=== PATIENT | female | born 1950 | race Caucasian/White ===

== ENCOUNTER 2021-12-22 13:46 | Inpatient (IN) | payer OTHER ==
--- OUTSIDE RECORDS SUMMARY | 2021-12-22 13:49 | XMS REPORT | Continuity of Care Document ---
:1950 Author Organization [facility] t Address [address] [place] [place] [address] Care Team Providers Name Role Phone Wood Hagan MD Primary Care Physician Wood Hagan Attending Clinician Unavailable TAVO ORTEGA Attending Clinician Unavailable Payers Payer Name Policy Type Policy Number Effective Date Expiration Date S ource Problems Condition Condition Condition Status Onset Resolution Last Treating Co mments Source Name Details Category Date Date Treatment Clinician Date No known No known Disease Metho di active active st problems problems Hospit a l Allergies, Adverse Reactions, Alerts This patient has no known allergies or adverse reactions. Family History Family Member Diagnosis Comments Start Date Stop Date Source Natural mother Cancer [facility] Social History Social Habit Start Date Stop Date Quantity Comments Source Tobacco Comment 2020-11-07 2020-11-07 No history at all [facility] Tobacco use and 2020-11-07 2020-11-07 Smokeless tobacco [facility] exposure 00:00:00 00:00:00 non-user Hospital Alcohol intake 2020-11-07 2020-11-07 Current drinker [facility] 00:00:00 00:00:00 of alcohol Hospital (finding) Sex Assigned At [birth year] F [facility] 00:00:00 00:00:00 Hospital Smoking Status Start Date Stop Date Source Never smoked tobacco [facility] Medications Ordered Filled Start Stop Current Ordering Indication Dosage Frequency Signature Comments Components Source Medication Medication Date Date Medication? Clinician (SIG) Name Name losartan Yes 100mg QD Take 100 Meth marlee (COZAAR) 5-[address] 100 MG 00:00: mouth Hospita tablet 00 daily. l Procedures This patient has no known procedures. Plan of Care Planned Activity Planned Date Details Comments Source Future Scheduled 2021-12-20 HEPATITIS B VACCINES [facility] Test 00:48:00 (1 of 3 - 3-dose series) [code = HEPATITIS B VACCINES (1 of 3 - 3-dose series)] Future Scheduled 2021-12-20 COVID-19 VACCINE (#1) [facility] Test 00:48:00 [code = COVID-19 VACCINE (#1)] Future Scheduled 2021-12-20 Hepatitis C screening [facility] Test 00:48:00 (procedure) [code = 936171061] Future Scheduled 2021-12-20 BREAST CANCER [facility] Test 00:48:00 SCREENING [code = BREAST CANCER SCREENING] Future Scheduled 2021-12-20 COLONOSCOPY SCREENING [facility] Test 00:48:00 [code = COLONOSCOPY SCREENING] Future Scheduled 2021-12-20 SHINGLES VACCINES (1 [facility] Test 00:48:00 of 2) [code = SHINGLES VACCINES (1 of 2)] Future Scheduled 2021-12-20 65+ [facility]AL [facility] 00:48:00 VACCINE (1 - PCV) [code = 65+ PNEUMOCOCCAL VACCINE (1 - PCV)] Future Scheduled 2021-12-20 [facility]ACCINE [facility] 00:48:00 [code = INFLUENZA VACCINE] Encounters Start End Encounter Admission Attending Care Care Encounter Source Date/Time Date/Time Type Type Clinicians Facility Department ID 2021-08-23 Outpatient [place] [id number] Common 09:30:02 [facility] 2021-05-16 Outpatient [place] [facility] [id number] Common 13:05:54 Wood [facility] 2021-05-16 Outpatient [facility] [id number] Common 12:10: 61389 [facility] 2021-12-14 2021-12-14 Travel 1.2.840.1 [id number] [facility] 00:00:00 00:00:[address] 3.430.2.7 0.2.7.3.698 Ho spita .3.508615 084.8 l .8 2021-12-05 2021-12-05 Transcribe Bentley, 1.2.840.1 [id number] [facility] 00:00:00 00:00:00 Orders Wood [address] 3.430.2.7 Hospit a .3.054974 l .8 2021-12-05 2021-12-05 Travel 1.2.840.1 [id number] [facility] 00:00:00 00:00:[address] 3.430.2.7 0.2.7.3.698 Ho spita .3.646723 084.8 l .8 2020-12-13 2020-12-13 Outpatient [facility] [id number] Common 00:00:00 00:00:00 [facility] 2020-11-07 2020-11-07 Outpatient [facility] [id number] [address] [place] 00:00:00 00:00:[address] 2020-11-07 2020-11-07 Outpatient [facility] [id number] [address] [place] 00:00:00 00:00:[address] 2020-08-15 2020-08-15 Outpatient JASMYNE ORTE[facility] [id number] [place] 09:21:00 23:59:00 TAVO 2020-07-20 2020-07-20 Outpatient [facility] [id number] Common 00:00:00 00:00:00 [facility] 2020-06-14 2020-06-14 Outpatient [facility] [id number] Common 00:00:00 00:00:00 [facility] 2020-05-29 2020-05-29 Outpatient [facility] [id number] Common 00:00:00 00:00:00 [facility] 2020-04-25 2020-04-25 Outpatient [facility] [id number] Common 00:00:00 00:00:00 [facility] 2020-04-04 2020-04-04 Outpatient [facility] [id number] Common 00:00:00 00:00:00 [facility] 2020-03-29 2020-03-29 Outpatient [facility] [id number] Common 00:00:00 00:00:00 [facility] 2020-03-24 2020-03-24 Outpatient [facility] [id number] Common 00:00:00 00:00:00 [facility] Results This patient has no known results.
[2021-12-22] MEDS ORDERED: NA CHLORIDE 0.9% 500 ML ONE (14:45)
[2021-12-22 15:17] LABS: Absolute Lymphocytes (CBC) 0.5 K/uL (0.7-4.9); Hematocrit 38.1 % (36.0-45.0); Lymphocytes % 3.8 % (15.3-44.8); MCV 88.4 fL (80-100); MPV 7.8 fL (7.6-11.3); RBC Red Blood Cell Count 4.31 M/uL (3.86-4.86)
[2021-12-22 15:26] LABS: Albumin 2.6 g/dL (3.4-5.0); Bilirubin Total 0.3 mg/dL (0.2-1.0); Potassium 3.6 mmol/L (3.5-5.1); Protein, Total 6.4 g/dL (6.4-8.2)
--- NOTE | 2021-12-22 15:51 | RAD REPORT ---
EXAM DESCRIPTION: CTAbdomen Pelvis W Contrast - 12/22/2021 3:33 pm CLINICAL HISTORY: Abdominal pain, acute, nonlocalized COMPARISON: No comparisons TECHNIQUE: CT of the abdomen and pelvis was performed with contrast. All CT scans are performed using dose optimization technique as appropriate and may include automated exposure control or mA/KV adjustment according to patient size. FINDINGS: Lower chest: The hiatal hernia. Question thickened gastric wall. Liver: No acute abnormality or suspicious lesions. Biliary: No biliary ductal dilatation. Stomach: No significant focal abnormality. Duodenum: No significant focal abnormality. Pancreas: No significant abnormality. Spleen: No significant abnormality. Adrenal: No suspicious lesions. Kidney/ureter: No hydronephrosis. No renal calculi. Bilateral renal lesions which are indeterminate. Question striated left nephrogram. Retroperitoneum: No retroperitoneal adenopathy. Vascular: No aneurysm. Bowel: No significant focal abnormality. Peritoneum: No ascites or free air. Bladder: Grossly unremarkable. Reproductive: No adnexal masses. Hysterectomy Bones: No acute fracture. Ruby rods in the spine. Remote right obturator ring fracture. Remote rib fractures. Other: n/a IMPRESSION: Ill-defined areas of hypoattenuation within the kidneys bilaterally may represent pyelon ephritis. No renal abscess noted at this time. Consider follow-up renal ultrasound in 6-12 weeks to r e-assess for an underlying lesion. Question gastritis. This can be further evaluated with nonemergent endoscopy.
--- NOTE | 2021-12-22 16:25 | ER ---
Nurse's Notes [facility] Name: Berta Munroe Age: 71 yrs Sex: Female : 1950 Arrival Date: 12/22/2021 Time: 13:58 Bed 7 Private MD: Diagnosis: Hypo-osmolality and hyponatremia;Weakness Presentation: 12/22 14:14 Chief complaint: Spouse and/or significant other states: A few days ago she started iw having fever, nausea, and body aches. I took her to urgent care on Yesterday and they said she has a UTI. When I took her back today they did an abdominal xray and said that she might have a small bowel obstruction and to come here. Coronavirus screen: Client presents with at least one sign or symptom that may indicate coronavirus-19. Standard/surgical mask placed on the client. The client reports previous COVID testing was negative. Date of collection: December 21, 2021. Ebola Screen: No symptoms or risks identified at this time. Initial Sepsis Screen: Does the patient meet any 2 criteria? No. Patient's initial sepsis screen is negative. Does the patient have a suspected source of infection? No. Patient's initial sepsis screen is negative. Initial Sepsis Screen: Does the patient have a suspected source of infection? Yes: Dysuria/Frequency/Urgency/UTI. Risk Assessment: Do you want to hurt yourself or someone else? Patient reports no desire to harm self or others. Onset of symptoms is unknown. 14:14 Method Of Arrival: Ambulatory iw 14:14 Acuity: MINAL 3 iw 14:14 Care prior to arrival: Medication(s) given: Motrin, \T\ 0200. iw Triage Assessment: 14:18 General: Appears in no apparent distress. comfortable, Behavior is calm, cooperative, iw appropriate for age. Pain: Denies pain. EENT: No deficits noted. No signs and/or symptoms were reported regarding the EENT system. Neuro: No deficits noted. Cardiovascular: No deficits noted. Respiratory: No deficits noted. GI: Abdomen is flat, non-distended, Abd is soft and non tender X 4 quads. Reports anorexia, intolerance of food, nausea. : Reports inability to void, Denies burning with urination. Derm: No deficits noted. No signs and/or symptoms reported regarding the dermatologic system. Musculoskeletal: No deficits noted. No signs and/or symptoms reported regarding the musculoskeletal system. Historical: - Allergies: 14:18 No Known Allergies; iw - Home Meds: 14:18 losartan 50 mg oral tab 1 tab 2 times per day [Active]; iw - PMHx: 14:18 Hypertensive disorder; iw - PSHx: 14:18 scoliosis; hyst; iw - Immunization history:: Adult Immunizations up to date, Client reports receiving the 2nd dose of the Covid vaccine, Client reports receiving the 1st dose of the Covid vaccine. - Social history:: Smoking status: Patient denies any tobacco usage or history of. Screenin:55 Abuse screen: Denies threats or abuse. Denies injuries from another. Nutritional eh3 screening: No deficits noted. Tuberculosis screening: No symptoms or risk factors identified. Fall Risk None identified. Assessment: 14:55 General: Appears in no apparent distress. comfortable, Behavior is calm, cooperative, eh3 appropriate for age. Pain: Denies pain. Neuro: Level of Consciousness is awake, alert, obeys commands, Oriented to person, place, time, situation. Cardiovascular: Capillary refill < 3 seconds Patient's skin is warm and dry. Respiratory: Airway is patent Respiratory effort is even, unlabored. GI: Abdomen is round distended, Bowel sounds present X 4 quads. : No signs and/or symptoms were reported regarding the genitourinary system. 16:08 Reassessment: Patient is alert, oriented x 3, equal unlabored respirations, skin eh3 warm/dry/pink. 17:08 Reassessment: Patient is alert, oriented x 3, equal unlabored respirations, skin eh3 warm/dry/pink. c/o of nausea. Emesis bag provided. 18:57 Reassessment: Patient appears in no apparent distress at this time. Patient and/or ld1 family updated on plan of care and expected duration. Pain level reassessed. Patient is alert, oriented x 3, equal unlabored respirations, skin warm/dry/pink. 19:15 GI: Reports vomiting. ke1 20:14 Reassessment: Report given to Deepa herring1 Vital Signs: 14:14 BP 120 / 65; Pulse 68; Resp 16; Temp 97.8(O); Pulse Ox 100% on R/A; Weight 63.5 kg (R); iw Height 5 ft. 7 in. (170.18 cm); Pain 0/10; 15:00 BP 130 / 57; Pulse 60; Resp 16; Pulse Ox 96% on R/A; eh3 16:00 BP 147 / 96; Pulse 67; Resp 20; Pulse Ox 97% on R/A; eh3 17:00 BP 171 / 84; Pulse 72; Resp 14; Pulse Ox 96% on R/A; eh3 18:00 BP 152 / 73; Pulse 72; Resp 17; Pulse Ox 100% on R/A; ld1 14:14 Body Mass Index 21.93 (63.50 kg, 170.18 cm) iw ED Course: 13:58 Patient arrived in ED. am2 14:07 Harley Meehan MD is Attending Physician. kdr 14:18 Triage completed. iw 14:18 Arm band placed on right wrist. iw 14:30 Maddi Dao, RN is Primary Nurse. eh3 14:55 Patient has correct armband on for positive identification. Bed in low position. Call [facility] light in reach. Side rails up X2. laboratory monitor on. Door closed. Noise minimized. Lights dimmed. Warm blanket given. 14:55 No provider procedures requiring assistance completed. Missed attempt(s): 20 gauge in eh3 right antecubital area. Inserted saline lock: 20 gauge in left antecubital area, using aseptic technique. Blood collected. 15:35 CT Abd/Pelvis - IV Contrast Only In Process Unspecified. EDMS 16:12 CXR XRAY In Process Unspecified. EDMS 16:18 Straight cath inserted, using sterile technique, 18 Fr. Specimen obtained. Patient 3 tolerated. 16:20 Wood Hagan MD is Hospitalizing Provider. kdr 17:08 SARS RAPID Sent. eh3 17:11 Urine Culture Sent. eh3 Administered Medications: 14:55 Drug: NS 0.9% 500 ml Route: IV; Rate: bolus; Site: left antecubital; eh3 16:00 Follow up: IV Status: Completed infusion; IV Intake: 500ml 3 16:40 Drug: NS 0.9% 1000 ml Route: IV; Rate: 150 ml/hr; Site: left antecubital; eh3 17:36 Follow up: IV Status: Completed infusion; IV Intake: 1000ml 3 19:24 Drug: ProTONIX (pantoprazole) 40 mg Route: IVP; Site: left antecubital; ke1 19:33 Drug: Zofran (Ondansetron) 4 mg Route: IVP; Site: left antecubital; ke1 19:46 Drug: GI Cocktail without - (Maalox Suspension 30 ml, Lidocaine Liquid 2 % 15 ke1 ml) Route: PO; Medication: 14:55 VIS not applicable for this client. 3 Intake: 16:00 IV: 500ml; Total: 500ml. eh3 17:36 IV: 1000ml; Total: 1500ml. 3 Outcome: 16:24 Decision to Hospitalize by Provider. kdr 20:39 Patient left the ED. Signatures: Dispatcher [employer] EDMS Marychuy Flower RN Harley Saul MD MD kdr Williams, Irene, RN RN iw Moreno, Amanda am2 Shira Wilson RN RN ld1 Nancy Rosario tw5 Horacio Wilson RN RN ke1 Maddi Dao RN RN 3 Corrections: (The following items were deleted from the chart) 15:45 15:43 Patient has correct armband on for positive identification. Bed in low position. 3 Call light in reach. Side rails up X2. [facility] 15:45 15:43 laboratory monitor on. [place] [address] 15:45 15:43 Door closed. Noise minimized. Lights dimmed. Warm blanket given. [place] [address] 15:45 15:43 Abuse screen: Denies threats or abuse. Denies injuries from another. [place] [address] 15:45 15:43 Nutritional screening: No deficits noted. [place] [address] 15:45 15:43 Tuberculosis screening: No symptoms or risk factors identified. [place] [address] 15:45 15:43 Fall Risk None identified. [facility] 17:10 17:08 Reassessment: Patient is alert, oriented x 3, equal unlabored respirations, skin 3 warm/dry/pink. 3 18:57 18:57 BP 152 / 73; Pulse 72bpm; Resp 17bpm; Pulse Ox 100% RA; ld1 ld1 19:32 19:31 GI: Reports vomiting, ke1 ke1 20:13 20:12 Reassessment: Report given to miguel DIETRICH tw5 tw5
--- NOTE | 2021-12-22 16:25 | EDPHYS ---
Physician Documentation [facility] Name: Berta Munroe Age: 71 yrs Sex: Female : 1950 Arrival Date: 12/22/2021 Time: 13:58 Bed 7 Private MD: ED Physician Harley Meehan HPI: 12/22 16:38 This 71 yrs old Female presents to ER via Ambulatory with complaints of Fever, kdr Abdominal Distention. 16:38 Patient has been feeling poorly for the last 2 to 3 days. She has been to several [facility] urgent care during that time. She is also been tested several times for COVID and all of have been negative to date. At one time she was thought to possibly have a urinary tract infection with given Rocephin and Cipro. She has continued to feel poorly and presented back to the urgent care this morning. They did a abdominal plain film and were concerned for possible bowel obstruction. Since they did not have the facilities to evaluate that possibility, she was sent to the ED for further evaluation.. Onset: The symptoms/episode began/occurred gradually, 3 day(s) ago. Severity of symptoms: At their worst the symptoms were very mild mild in the emergency department the symptoms are unchanged. The patient has not experienced similar symptoms in the past. The patient has been recently seen by a physician: The patient has been recently seen at an urgent care, just prior to arrival, today, yesterday. Historical: - Allergies: 14:18 No Known Allergies; iw - Home Meds: 14:18 losartan 50 mg oral tab 1 tab 2 times per day [Active]; iw - PMHx: 14:18 Hypertensive disorder; iw - PSHx: 14:18 scoliosis; hyst; iw - Immunization history:: Adult Immunizations up to date, Client reports receiving the 2nd dose of the Covid vaccine, Client reports receiving the 1st dose of the Covid vaccine. - Social history:: Smoking status: Patient denies any tobacco usage or history of. ROS: 16:38 Constitutional: Negative for chills, and weight loss. kdr 16:38 Eyes: Negative for injury, pain, redness, and discharge, Neck: Negative for injury, pain, and swelling, Cardiovascular: Negative for chest pain, palpitations, and edema, Respiratory: Negative for shortness of breath, cough, wheezing, and pleuritic chest pain, Abdomen/GI: Negative for abdominal pain, nausea, vomiting, diarrhea, and constipation, Back: Negative for injury and pain, : Negative for injury, bleeding, discharge, and swelling, MS/Extremity: Negative for injury and deformity, Skin: Negative for injury, rash, and discoloration, Psych: Negative for depression, anxiety, suicide ideation, homicidal ideation, and hallucinations, Allergy/Immunology: Negative for hives, rash, and allergies, Endocrine: Negative for neck swelling, polydipsia, polyuria, polyphagia, and marked weight changes, Hematologic/Lymphatic: Negative for swollen nodes, abnormal bleeding, and unusual bruising. 16:38 Constitutional: Positive for chills, fever. 16:38 Abdomen/GI: Positive for The patient had a very poor appetite this week and has eaten very little for the last 2 to 4 days. She has also had diminished bowel movements. 16:38 Neuro: Positive for weakness. Exam: 16:38 Constitutional: This is a well developed, well nourished patient who is awake, alert, kdr and in no acute distress. Head/Face: Normocephalic, atraumatic. Eyes: Pupils equal round and reactive to light, extra-ocular motions intact. Lids and lashes normal. Conjunctiva and sclera are non-icteric and not injected. Cornea within normal limits. Periorbital areas with no swelling, redness, or edema. Neck: Trachea midline, no thyromegaly or masses palpated, and no cervical lymphadenopathy. Supple, full range of motion without nuchal rigidity, or vertebral point tenderness. No Meningismus. Chest/axilla: Normal chest wall appearance and motion. Nontender with no deformity. No lesions are appreciated. Cardiovascular: Regular rate and rhythm with a normal S1 and S2. No gallops, murmurs, or rubs. Normal PMI, no JVD. No pulse deficits. Respiratory: Lungs have equal breath sounds bilaterally, clear to auscultation and percussion. No rales, rhonchi or wheezes noted. No increased work of breathing, no retractions or nasal flaring. Abdomen/GI: Soft, non-tender, with normal bowel sounds. No distension or tympany. No guarding or rebound. No evidence of tenderness throughout. Back: No spinal tenderness. No costovertebral tenderness. Full range of motion. Skin: Warm, dry with normal turgor. Normal color with no rashes, no lesions, and no evidence of cellulitis. MS/ Extremity: Pulses equal, no cyanosis. Neurovascular intact. Full, normal range of motion. Neuro: Awake and alert, GCS 15, oriented to person, place, time, and situation. Cranial nerves II-XII grossly intact. Motor strength 5/5 in all extremities. Sensory grossly intact. Cerebellar exam normal. Normal gait. Psych: Awake, alert, with orientation to person, place and time. Behavior, mood, and affect are within normal limits. Vital Signs: 14:14 BP 120 / 65; Pulse 68; Resp 16; Temp 97.8(O); Pulse Ox 100% on R/A; Weight 63.5 kg (R); iw Height 5 ft. 7 in. (170.18 cm); Pain 0/10; 15:00 BP 130 / 57; Pulse 60; Resp 16; Pulse Ox 96% on R/A; eh3 16:00 BP 147 / 96; Pulse 67; Resp 20; Pulse Ox 97% on R/A; eh3 17:00 BP 171 / 84; Pulse 72; Resp 14; Pulse Ox 96% on R/A; eh3 18:00 BP 152 / 73; Pulse 72; Resp 17; Pulse Ox 100% on R/A; ld1 14:14 Body Mass Index 21.93 (63.50 kg, 170.18 cm) iw MDM: 16:24 Patient medically screened. kdr 16:38 Data reviewed: vital signs, nurses notes, lab test result(s), radiologic studies. kdr Counseling: I had a detailed discussion with the patient and/or guardian regarding: the historical points, exam findings, and any diagnostic results supporting the discharge/admit diagnosis, lab results, radiology results, the need for further work-up and treatment in the hospital. Physician consultation: Wood Hagan MD regarding admission, to the telemetry unit. patient's condition. Admission orders: after a detailed discussion of the patient's condition and case, the admit orders are written by me. 12/22 14:28 Order name: CBC with Diff; Complete Time: 15:36 kdr 12/22 14:28 Order name: CMP; Complete Time: 15:36 kdr 12/22 14:28 Order name: Lipase; Complete Time: 15:36 kdr 12/22 16:20 Order name: Urine Culture; Complete Time: 11:58 kdr 12/22 16:32 Order name: Basic Metabolic Panel EDMS 12/22 16:32 Order name: Basic Metabolic Panel; Complete Time: 11:58 EDMS 12/22 14:28 Order name: CT Abd/Pelvis - IV Contrast Only; Complete Time: 16:08 kdr 12/22 15:37 Order name: CXR XRAY; Complete Time: 11:58 kdr 12/22 16:32 Order name: CBC with Automated Diff EDMS 12/22 16:32 Order name: CBC with Automated Diff; Complete Time: 11:58 EDMS 12/22 16:37 Order name: SARS RAPID; Complete Time: 11:58 eb 12/22 16:52 Order name: Urine Dipstick-Ancillary; Complete Time: 11:58 EDMS 12/22 14:28 Order name: IV Saline Lock; Complete Time: 14:30 kdr 12/22 14:28 Order name: Labs collected and sent; Complete Time: 14:55 kdr 12/22 16:20 Order name: Urine Dipstick-Ancillary (obtain specimen); Complete Time: 16:54 kdr 12/22 16:32 Order name: Regular EDMS Administered Medications: 14:55 Drug: NS 0.9% 500 ml Route: IV; Rate: bolus; Site: left antecubital; 3 16:00 Follow up: IV Status: Completed infusion; IV Intake: 500ml [facility] 16:40 Drug: NS 0.9% 1000 ml Route: IV; Rate: 150 ml/hr; Site: left antecubital; eh3 17:36 Follow up: IV Status: Completed infusion; IV Intake: 1000ml [facility] 19:24 Drug: ProTONIX (pantoprazole) 40 mg Route: IVP; Site: left antecubital; ke1 19:33 Drug: Zofran (Ondansetron) 4 mg Route: IVP; Site: left antecubital; ke1 19:46 Drug: GI Cocktail without - (Maalox Suspension 30 ml, Lidocaine Liquid 2 % 15 ke1 ml) Route: PO; Disposition Summary: 12/22/21 16:24 Hospitalization Ordered Hospitalization Status: Inpatient Admission kdr Provider: Wood Hagan Location: Telemetry[facility] (Inpatient) kdr Condition: Fair kdr Problem: new kdr Symptoms: have improved kdr Bed/Room Type: Standard kdr Room Assignment: 409(12/22/21 19:37) cg Diagnosis - Hypo-osmolality and hyponatremia kdr - Weakness kdr Forms: - Medication Reconciliation Form kdr - SBAR form kdr Signatures: Dispatcher [employer] EDDale Will MD MD cha Rittger, Kevin, MD MD kdr Williams, Irene, RN RN iw Garcia, Cindy, RN RN cg Ebrottie, Kouassi, RN RN formerly [facility] Maddi Dao RN RN eh3 Corrections: (The following items were deleted from the chart) 19:37 16:24 kdr cg
[2021-12-22] MEDS ORDERED: NA CHLORIDE 0.9% 1,000 ML ONE (16:28)
--- NOTE | 2021-12-22 16:31 | RAD REPORT ---
EXAM DESCRIPTION: RAD - Chest Single View - 12/22/2021 4:10 pm CLINICAL HISTORY: ABDOMINAL DISTENTION COMPARISON: Chest Pa And Lat (2 Views) dated 12/23/2017; CHEST SINGLE VIEW dated 07/11/2010; CHEST PA A ND LAT 2 VIEW dated 06/21/2010 FINDINGS: Lines: None. Lungs: No evidence of edema or pneumonia. Pleural: No significant pleural effusions or pneumothorax. Cardiac: The heart size is within normal limits. Mediastinum: Within normal limits. Bones: No acute fractures. Ruby rods in the spine. Other: None IMPRESSION: No acute cardiopulmonary disease.
[2021-12-22 16:51] LABS: Urine Blood 2+ (Negative); Urine Glucose Negative (Negative); Urine Protein 1+ (Negative); Urine Specific Gravity <=1.005 (1.005-1.030); Urine pH 5.5 (5.0-7.0)
[2021-12-22 17:10] LABS: SARS-CoV-2 Antigen Rapid Res Negative (Negative)
[2021-12-22] MEDS ORDERED: ONDANSETRON 4 MG/2 ML VIAL ONE ×2 (17:12→19:36)
[2021-12-22] MEDS ORDERED: MAGNES/ALUMIN/SIMET 30ML UCUP PO ONE (19:15)
[2021-12-22] MEDS ORDERED: PANTOPRAZOLE 40 MG INJ ONE (19:28)
[2021-12-22] MEDS ORDERED: LIDOCAINE VISCOUS 2% SOLN 15 ML UDC ONE (19:29)
[2021-12-22] MEDS: NA CHLORIDE 0.9% 1,000 ML IV SCH ×2 (22:21→23:40)
[2021-12-22 22:54] VITALS: BMI 21.9
[2021-12-23 04:56] LABS: Absolute Lymphocytes (CBC) 0.5 K/uL (0.7-4.9); Hematocrit 34.2 % (36.0-45.0); Lymphocytes % 5.2 % (15.3-44.8); MCV 88.2 fL (80-100); MPV 8.1 fL (7.6-11.3); RBC Red Blood Cell Count 3.88 M/uL (3.86-4.86)
[2021-12-23 05:11] LABS: Potassium 3.3 mmol/L (3.5-5.1)
[2021-12-23] MEDS: NA CHLORIDE 0.9% 1,000 ML IV SCH ×3 (06:20→16:11)
[2021-12-23] MEDS: CEFTRIAXONE 1,000 MG in NA CHLORIDE 0.9% 50 ML IVPB SCH (09:08)
[2021-12-23] MEDS: ACETAMINOPHEN 500 MG TAB PO PRN ×2 (09:12→17:29)
[2021-12-23] MEDS ORDERED: POTASSIUM CL SA 10 MEQ TAB PO ONE ×2 (10:00→16:00)
[2021-12-23] MEDS: ENOXAPARIN 30 MG/0.3 ML SQ SCH (14:16)
[2021-12-23 14:26] LABS: Potassium 3.8 mmol/L (3.5-5.1)
[2021-12-24] MEDS: NA CHLORIDE 0.9% 1,000 ML IV SCH ×3 (00:38→07:46)
[2021-12-24 04:32] LABS: Potassium 3.8 mmol/L (3.5-5.1)
[2021-12-24] MEDS: ACETAMINOPHEN 500 MG TAB PO PRN (06:17)
[2021-12-24] MEDS: CEFTRIAXONE 1,000 MG in NA CHLORIDE 0.9% 50 ML IVPB SCH (07:44)
[2021-12-24] MEDS: ENOXAPARIN 30 MG/0.3 ML SQ SCH (07:48)
[2021-12-24] MEDS ORDERED: POTASSIUM CL SA 10 MEQ TAB PO ONE (09:00)
--- NOTE | 2021-12-24 12:52 | HP ---
Date of Admission: 12/22/2021 Chief Complaint: Weakness, nausea, general malaise. History Of Present Illness: The patient states her symptoms started about 4 to 5 days prior to being seen in the emergency room. She started having some chills, fever, nausea associated with some sebastien r abdominal pain. No diarrhea or constipation. Over the next few days, her symptoms increased so th at she became anorectic associated with generalized muscle weakness. She tested for COVID, which was negative. Went to a local urgent care center, at which time, she also retested her and such she req uired a CAT scan. She was therefore sent to the ER. ER revealed the probability of acute pyelonephr itis. Also, they gave her a shot of Rocephin and put her on some Cipro. Once the CAT scan was done, they decided to admit her for more intensive care. Electrolytes were also done, which revealed a so dium of 118. Past Medical History: The patient has a history of some abnormal sodium readings a number of years a go, it was elevated and then it was borderline. At that time, she was on blood pressure medicine wit h diuretic, but the later it was stopped. Her blood pressure has been stable; however, vital signs i n the past few days showed a low blood pressure. Social History: Nonsmoker, nondrinker. Family History: Noncontributory. Physical Examination: General: The patient is a rather weak appearing elderly female. Vital Signs: Temperature 99, blood pressure 90/68, pulse 94 and regular, respiratory rate 20. Head and Neck: Normocephalic. Pupils equal to light and accommodation. Fundi negative. Trachea mi dline. Thyroid not palpable. ENT: Negative. Chest: Clear to P and A. Cardiovascular: PMI in midclavicular line. Heart: Sounds normal. Peripheral pulses are present and equal bilaterally. Abdomen: No organomegaly. Bowel sounds present. No tenderness, guarding, or rigidity. Extremities: Moderately dehydrated. Good tone bilaterally. Reflexes physiologic. Rectal: Deferred. Pelvic: Deferred. Impression: Acute pyelonephritis, hyponatremia, marked hypokalemia, borderline dehydration, hyperten jong controlled. Plan: The patient will be admitted. Placed on IV fluids and her sodium up slowly. Add some antibio tics to the IVs and she will be admitted. HR/MODL Voice ID: [id number]
--- NOTE | 2021-12-24 12:55 | PN ---
Date of Progress Note: 12/24/2021 The patient is seen this afternoon. She started to eat a little bit and drinking more fluids than sh lennox has. Her sodium is up to 121. She had good urinary output. No symptoms. Examination revealed qu estionable tenderness and CVA angle in the left, otherwise negative. Continue with replacement of so dium and potassium protocol. HR/MODL Voice ID: [id number] Report ID: [id number]
[2021-12-24] MEDS ORDERED: NA CHLORIDE 0.9% 1,000 ML IV SCH (13:00)
--- NOTE | 2021-12-24 13:16 | PN ---
Date of Progress Note: 12/24/2021 The patient feels much better today. She has been up walking. Appetite is increased. Intake is inc reased and sodium is now 126. Potassium is normal. We will decrease her IV to TKO and tolerating in take and sodium continues to improve. We will probably be able to be discharged in the a.m. As far as the reason for hyponatremia in view of her response and so far no other indicators, pro bability of being anorectic and according to her has very little salt in general through her food was the probable etiology. We will continue to monitor her as above and as an outpatient. HR/MODL Voice ID: [id number] Report ID: [id number]
[2021-12-24 21:30] VITALS: O2SAT 99
[2021-12-25 04:19] LABS: Absolute Lymphocytes (CBC) 0.9 K/uL (0.7-4.9); Hematocrit 32.7 % (36.0-45.0); Lymphocytes % 13.1 % (15.3-44.8); MCV 87.8 fL (80-100); MPV 7.4 fL (7.6-11.3); RBC Red Blood Cell Count 3.73 M/uL (3.86-4.86)
[2021-12-25 05:26] LABS: Blood Morphology Comment NOT SEEN (NOT SEEN); Platelet Estimate ADEQ
[2021-12-25] MEDS: ENOXAPARIN 30 MG/0.3 ML SQ SCH (09:03)
[2021-12-25] MEDS: CEFTRIAXONE 1,000 MG in NA CHLORIDE 0.9% 50 ML IVPB SCH (09:03)
[2021-12-25] MEDS: ACETAMINOPHEN 500 MG TAB PO PRN (11:30)
--- NOTE | 2021-12-25 12:28 | P.CNS ---
Date of Consult: 12/25/21 Reason for Consult: Hyponatremia Requesting Physician: oWod Hagan Chief Complaint: Fever, UTI History of Present Illness: Pt presented to the hospital with reports of fever, malaise, anorexia a few days prior to admission. She initially went to an urgent care center and was told she may have a UTI and possibly put on a Abx prior to admission as UCx here did not grow out an organism. She was also found to have ANITA and severe hyponatremia on admission both of which have improved with isotonic saline hydration. She denies much abdominal or flank pain prior to admission but CT scan on imaging suggested possibly pyelonephritis. She feels well now and would like to go home. Allergies No Known Allergies Allergy (Verified 12/22/21 22:39) Home Medications: Losartan Potassium 100 mg PO DAILY 12/23/21 - Past Medical/Surgical History Diabetic: No -: HTN -: BREAST CANCER -: HYSTERECTOMY -: SCOLIOSIS -: SCOLIOSIS SURGERY - Family History Mother Medical History: Cancer Father Medical History: Heart disease, Cancer - Social History Alcohol use: Yes CD- Drugs: No Caffeine use: No Place of Residence: Home Review of Systems General: Fever, Malaise Eyes: Unremarkable ENT: Unremarkable Respiratory: Unremarkable Cardiovascular: Unremarkable Gastrointestinal: Unremarkable Genitourinary: Other (Treated for a UTI during admission,no zamorano currently, voiding without issues or dysuria) Musculoskeletal: Unremarkable Integumentary: Unremarkable Neurological: Unremarkable Lymphatics: Unremarkable Physical Examination Temp Pulse Resp BP Pulse Ox 98.0 F 77 16 129/64 98 12/25/21 08:00 12/25/21 08:00 12/25/21 08:00 12/25/21 08:00 12/25/21 08:00 General: Alert, In no apparent distress, Oriented x3 HEENT: Atraumatic, Normocephalic, PERRLA Neck: Supple Respiratory: Clear to auscultation bilaterally, Normal air movement Cardiovascular: Normal pulses, Normal S1 S2 Gastrointestinal: Soft and benign, Non-distended, No tenderness Musculoskeletal: No clubbing, No swelling, No contractures Integumentary: No rashes, No breakdown Neurological: Normal speech, Normal affect Conclusions/Impression: 1. Stage II ANITA on admission 2nd to volume depletion, hypotension, UTI, recent ARB use, other -resolved 2. Acute on chronic hyponatremia -improving 3. Volume depletion -resolved 4. Underlying chronic HTN 5. UTI site unspecified -treated -Pt has had some mild chronic hyponatremia in the past but Na level was 118 on admission but which has slowly but steadily improved to 127 with isotonic saline hydration supporting hypovolemic hyponatremia exacerbated by reduced oral intake/sodium deficit. In the past, pt has taken a thiazide diuretic coupled to the ARB agent but not recently. Can not exclude any other underlying condition contributing to hyponatremia but will need to f/u Na levels as OP to see if they cont to improve and normalize vs other. -Ok to discharge today with Na level check on and f/u in clinic with me Fri -For BP, would discharge on lower dose of ARB at 50 mg qd with holding parameter -CT scan suggestive of possible pyelo with some striated appearance and stranding, has been on IV Abx for several days, leukocytosis resolved, UCx neg here and pt now asymptomatic. Thank you for the referral, Brennon Garcia MD, [facility]
[2021-12-25 14:20] VITALS: BP 140/70; TEMP 98.2
--- NOTE | 2021-12-25 21:16 | DS ---
Date of Discharge: 12/25/2021 The patient was admitted to the hospital on 12/22 after presenting to the emergency room with nausea, chills, fever, and general malaise. Diagnosis of hypokalemia marked was made and patient was admitt ed for further treatment, which consisted of isotonic normal saline replacement, symptomatic treatmen t, and continuation of Rocephin for possible pyelonephritis. During her hospital stay, she showed gr adual improvement both clinically and lab chavez with sodium eventually reaching 127. Rocephin was the antibiotic of choice, although culture was negative, the patient has received some Rocephin prior to admission. Remainder of her hospital stay, was stable. She started eating. By 12/25 was eating an d drinking back to normal. Strength had returned. She was up walking, felt well enough to be discha rged. Continue on Cipro 500 mg b.i.d. for a week. To use losartan, if blood pressure started to rosa vate over 140/90 to start with 50 mg rather than 100 mg a day and she was also seen by Nephrology and gave some detailed instructions in handling low-sodium and what further investigations, will be need ed. We will see her in a couple of days after admission with up to date blood work. I will see her in 1 week. Discharged in good condition. Final Diagnoses: Hyponatremia, severe dehydration, acute pyelonephritis, hypertension controlled. HR/MODL Voice ID: [id number] Report ID: [id number]
== END 2021-12-25 16:30 | disposition home or self-care (01) | DRG 641 ==
LOC: ER 13:46 → ERHOLD 16:30 → 4TH 20:17
PROVIDERS: ADMIT Family Medicine; ATTEND Family Medicine
DX: E87.1 Hypo-osmolality and hyponatremia (principal); N10 Acute pyelonephritis; N17.9 Acute kidney failure, unspecified; E87.6 Hypokalemia; E86.0 Dehydration; I10 Essential (primary) hypertension; Z85.3 Personal history of malignant neoplasm of breast; Z20.822 Contact with and (suspected) exposure to COVID-19
CPT/HCPCS: 36415; 51702; 71045; 74177; 80048; 80053; 81003; 82565; 83690; 85025; 87086; 87088; 87811; 96361; 96374; 96375; 97116; 97161; 99284; C9113; J1650; J2405; J7030; J7040; Q9967